=== PATIENT | male | born 1995 | race Caucasian/White ===

== ENCOUNTER 2022-04-12 02:02 | Emergency (ER) | payer OTHER ==
[~2022-04-12] VITALS: Ht 190.5 cm; Wt 71.7 kg
[2022-04-12 02:02] VITALS: BP 113/76
[~2022-04-12 02:02] MED LIST: NAPR-54 PO
--- NOTE | 2022-04-12 02:02 | NUR ---
TO BED AMBULATORY, BIBA WITH C/O N/V, ETOH
--- NOTE | 2022-04-12 02:25 | NUR ---
DR. HILLMAN AT BEDSIDE FOR MSE
[2022-04-12] MEDS ORDERED: ONDA-188 PO (02:32)
[2022-04-12] MEDS ORDERED: ONDANSETRON 4 MG ODT PO ONE (02:35)
--- NOTE | 2022-04-12 03:06 | NUR ---
PT PENDING RIDE FOR MATHEW
--- NOTE | 2022-04-12 04:17 | NUR ---
Patient appears to be resting comfortably in bed. VSS. Respirations even and unlabored.
--- NOTE | 2022-04-12 05:15 | NUR ---
pt a/o x4, ambulatory with a steady gait, RR even and unlabored, NAD.
[2022-04-12 05:30] VITALS: BP 110/77
== END 2022-04-12 05:25 | disposition home or self-care (01) ==
LOC: MED 02:02
DX: F10.129 Alcohol abuse with intoxication, unspecified (principal); R11.2 Nausea with vomiting, unspecified; Z79.899 Other long term (current) drug therapy
CPT/HCPCS: 99283; Q0162